=== PATIENT | male | born 1955 | race Caucasian/White ===

== ENCOUNTER 2016-09-04 06:09 | Day surgery (SDC) | payer BC ==
[~2016-09-04 06:09] MED LIST: Buffered Lidocaine 1% SYR 3ML* 3 ML/SYR SYRINGE INTRADERM ONE; Famotidine IV* 10 MG/ML 2 ML (20 mg) IV ONE; Morphine INJ* 2 MG/ML 1 ML CARPUJECT IV PRN; PROCHLORPERAZINE INJ 5 MG/ML 2 ML VIAL IV PRN; fentaNYL* 50 MCG/ML 2 ML VIAL (100 MCG VIAL) IV PRN; oxyCODONE/Acetamin 5/325 MG* TAB PO PRN
[2016-09-04] MEDS ORDERED: Famotidine IV* 10 MG/ML 2 ML (20 mg) ONE (06:22)
[2016-09-04] MEDS ORDERED: Buffered Lidocaine 1% SYR 3ML* 3 ML/SYR SYRINGE ONE (06:23)
[2016-09-04] MEDS ORDERED: ceFAZolin 2 GM PREMIX (*) 2 GM/50 ML BAG IVPB ONE (06:23)
[2016-09-04] MEDS ORDERED: Lidocaine 1% INJ* 10 MG/ML 30 ML SDV ONE (07:10)
[2016-09-04] MEDS ORDERED: Bupivacaine 0.5% W/EPI SDV* 30 ML VIAL ONE (07:10)
[2016-09-04] MEDS ORDERED: KETAMINE HCL* 50 MG/ML 10 ML VIAL ONE (07:23)
[2016-09-04] MEDS ORDERED: Midazolam* 1 MG/ML 5 ML VIAL (5 MG) ONE (07:23)
[2016-09-04] MEDS ORDERED: fentaNYL* 50 MCG/ML 2 ML VIAL (100 MCG VIAL) ONE (07:23)
[2016-09-04] MEDS ORDERED: Ketorolac INJ* 30 MG/ML 1 ML VIAL ONE (08:03)
[2016-09-04] MEDS ORDERED: Ondansetron INJ* 2 MG/ML VIAL ONE (08:03)
[2016-09-04] MEDS ORDERED: Lidocaine 2% PF* 10 ML AMP ONE (08:03)
[2016-09-04] MEDS ORDERED: Propofol* 10 MG/ML 20 ML BTL IV PUSH ONE ×2 (08:03→09:04)
[2016-09-04] MEDS ORDERED: Dexamethasone IV* 4 MG/ML 1 ML (4 MG) ONE (08:03)
--- NOTE | 2016-09-04 09:28 | PN ---
Progress Note - Progress Note Note: Brief Operative Note: Preop Dx: Right Inguinal Hernia Postop Dx: same, indirect Procedure: open repair RIH w mesh Anesthesia: local MAC Surgeon: Jayjay Asst: PROSPER Avendaño EBL: <50 ml Fluids: 700 ml RL drains: none findings: dictated
[2016-09-04 10:21] VITALS: BP 132/87
--- NOTE | 2016-09-04 23:39 | OP ---
DATE OF OPERATION: 09/04/16 [facility] DATE OF : 59 SURGEON: Kostas Ro MD COILER: PROSPER Chan ANESTHESIOLOGIST: Dr. Cohen ANESTHESIA: Local with monitored anesthesia care. PRE-OP DIAGNOSIS: Right inguinal hernia. POST-OP DIAGNOSIS: Right indirect inguinal hernia. OPERATIVE PROCEDURE: Open repair with mesh of a right indirect inguinal hernia. ESTIMATED BLOOD LOSS: Minimal. IV FLUIDS: 800 cc of crystalloid. SPECIMENS: None. WOUND CLASSIFICATION: I. DRAINS: None. COMPLICATIONS: None. DESCRIPTION OF PROCEDURE: Written informed consent was obtained, the right groin was marked with indelible ink, and preoperative antibiotics were administered. The patient was taken to the operating room, placed in the supine position. Sequential compression devices and warming blanket were applied. Anesthesia was administered in the right lower groin and abdomen was prepped and draped in the usual sterile fashion. Time-out verification was completed. Marcaine 0.25% mixed with 1% lidocaine was infiltrated extensively in the right lower quadrant and an oblique incision was made several fingerbreadths above the inguinal crease, carried down through the subcutaneous fat, Maru's fascia , and external oblique aponeurosis was identified and opened in the direction of its fibers. The underlying spermatic cord was identified. There was quite a large amount of scar tissue adherent to the underside of the fascia, and this was taken down with both sharp and blunt dissection. The spermatic cord was then encircled with a 1/4-inch Gus drain at the pubic tubercle. There was a fair amount of adhesive tissue between the cord structures and the direct space and this was dissected sharply to reveal the direct space. Here, there was a small defect in the transversalis fascia with some preperitoneal fat protruding through, which was reduced easily. There was a small bleeding area in the transversalis area, which was controlled with interrupted 3-0 Polysorb LigaSure. Once we had freed the cord up into the internal ring, which was somewhat patulous, appeared to be quite a large amount of scar tissue as well as fat within the spermatic cord. The vas deferens was identified and protected from injury throughout the course of the procedure. It was apparent that there was a rather large indirect inguinal hernia sac extending down towards the scrotum, which was quite thin-walled and at the same time quite scarred to the surrounding tissue, was making the dissection somewhat tedious. I did enter the sac at several places and these rents were closed with running 3-0 Polysorb suture. Eventually, we were able to dissect the sac up into the internal ring. Also, there was noted to be a cord lipoma, which was from the structures up in the internal ring and this was divided, but not sent for specimen. Once we had identified the anatomy, I did plicate the internal ring with several interrupted 3-0 Polysorb sutures in preparation for the mesh placement. Next, the Covidien ProGrip mesh was then placed to cover the direct and indirect spaces and sutured to the pubic tubercle medially, the conjoint tendon superiorly, and the musculature laterally. It was secured to the inguinal ligament inferiorly with a running 0 Polysorb suture. The internal ring was reconstructed nicely in what was felt to be the appropriate diameter. Hemostasis was assured and additional Marcaine was infiltrated. The external oblique aponeurosis was closed with a running 3-0 Polysorb suture. Maru's fascia was closed with interrupted 3-0 Polysorb suture. The skin was approximated with subcuticular 4-0 Polysorb suture. Steri-Strips and sterile dressings were applied. The patient tolerated the procedure well and was taken to the recovery room in stable condition. [id number]/[facility] #: [id number] [facility]
== END 2016-09-04 14:15 | disposition home or self-care (01) ==
LOC: OR 06:09
PROVIDERS: ATTEND Surgery
DX: K40.90 Unilateral inguinal hernia, without obstruction or gangrene, not specified as recurrent (principal); F17.200 Nicotine dependence, unspecified, uncomplicated; K21.9 Gastro-esophageal reflux disease without esophagitis
CPT/HCPCS: C1781; J0690; J1100; J1885; J2001; J2250; J2405; J2704; J3010

== ENCOUNTER 2023-09-06 15:16 | Inpatient (IN) ==
[2023-09-06] MEDS: Iohexol 300 (CONTRAST) 10 ML SDV IV ONE (17:01)
[2023-09-06] MEDS: Lactated Ringers 1000 ml BAG 1,000 ML IV ONE (17:22)
[2023-09-06] MEDS ORDERED: Morphine 2 MG/ML SYRINGE IV PRN (18:30)
[2023-09-06] MEDS ORDERED: Ondansetron 4 mg VIAL 2 MG/ML 2 ml VIAL IV PRN (18:30)
[2023-09-06] MEDS: Piperacillin/Tazobac 3.375 BAG 3.375 GM/100 ML BAG IV ONE (18:47)
[2023-09-06 18:49] LABS: Urine Appearance Cloudy; Urine Bilirubin Negative (Negative); Urine Blood Negative (Negative); Urine Color Yellow; Urine Glucose Negative (Negative); Urine Ketones Negative (Negative); Urine Nitrite Negative (Negative); Urine Protein Negative (Negative); Urine Specific Gravity 1.035 (1.002-1.030); Urine Urobilinogen Negative (Negative)
[2023-09-06 18:56] LABS: INR 1.23 (0.83-1.13)
[2023-09-06] MEDS ORDERED: Zosyn per Pharmacy NOTE FOLLOW UP SCH (19:00)
[2023-09-06] MEDS: NS 0.9% 1000 ml BAG 1,000 ML IV SCH (19:52)
[2023-09-07] MEDS: ZOSYN 3.375 GM Q8H per EXTENDED INFUSION IV SCH ×2 (00:36→03:58)
[2023-09-07 06:06] LABS: Hematocrit 30.7 % (38-53); Hemoglobin 9.9 g/dL (13.2-16.3); Mean Corpuscular Hemoglobin 31.1 pg (27-33); Mean Corpuscular Hgb Conc 32.3 g/dL (31-36); Mean Corpuscular Volume 96.3 fL (80-97); Mean Platelet Volume 9.5 fL (7.5-11.2); Platelet Count 197 10^3/uL (150-450); Red Blood Count 3.19 10^6/uL (4.06-5.63); Red Cell Distribution Width 18.5 % (12-17); White Blood Count 25.4 10^3/uL (3.6-10.2)
[2023-09-07 06:22] LABS: Creatinine, Serum 0.64 mg/dL (0.67-1.17); Potassium 3.7 mmol/L (3.5-5.0); eGFR CKD-EPI 104.4 (>60)
[2023-09-07 06:51] LABS: ABS Basophils 0.1 10^3/uL (0.0-0.1); ABS Lymphocytes 1.7 10^3/uL (1.0-4.8); ABS Monocytes 1.9 10^3/uL (0.0-1.1); ABS Neutrophils 21.6 10^3/uL (1.5-7.6); ABS Nucleated RBC 0.01 10^3/ul; Lymphocyte % 6.8 %
[2023-09-07] MEDS: Pantoprazole VIAL 40 MG VIAL IV SCH (08:40)
[2023-09-07] MEDS: fentaNYL 100 mcg/2 ml 50 MCG/ML VIAL ONE (19:27)
[2023-09-09 07:16] LABS: ABS Monocytes 1.3 10^3/uL (0.0-1.1); ABS Neutrophils 16.5 10^3/uL (1.5-7.6); ABS Nucleated RBC 0.04 10^3/ul; Hematocrit 31.9 % (38-53); Hemoglobin 10.4 g/dL (13.2-16.3); Lymphocyte % 10.2 %; Mean Corpuscular Hemoglobin 31.3 pg (27-33); Mean Corpuscular Hgb Conc 32.6 g/dL (31-36); Mean Platelet Volume 9.5 fL (7.5-11.2); Nucleated Red Blood Cells % 0.2 %/100WBC (0.0-0.8); Platelet Count 216 10^3/uL (150-450); Red Blood Count 3.32 10^6/uL (4.06-5.63); Red Cell Distribution Width 18.3 % (12-17); White Blood Count 19.8 10^3/uL (3.6-10.2)
[2023-09-09 07:34] LABS: C Reactive Protein 161.22 mg/L (<8.01); Calcium 8.2 mg/dL (8.6-10.3); Creatinine, Serum 0.7 mg/dL (0.67-1.17); Potassium 3.4 mmol/L (3.5-5.0); eGFR CKD-EPI 101.6 (>60)
[2023-09-09] MEDS: Potassium Chlor 20 meq TAB.ER PO ONE (12:21)
[2023-09-09] MEDS: Heparin 5000 UNITS/ML 1 mL VIAL SUBCUT SCH (21:57)
[2023-09-10 06:56] LABS: ABS Lymphocytes 1.5 10^3/uL (1.0-4.8); ABS Monocytes 1.1 10^3/uL (0.0-1.1); ABS Neutrophils 12.9 10^3/uL (1.5-7.6); Hematocrit 28.2 % (38-53); Hemoglobin 9.5 g/dL (13.2-16.3); Lymphocyte % 9.4 %; Mean Corpuscular Hemoglobin 31.8 pg (27-33); Mean Corpuscular Hgb Conc 33.5 g/dL (31-36); Mean Corpuscular Volume 94.9 fL (80-97); Mean Platelet Volume 9.4 fL (7.5-11.2); Platelet Count 207 10^3/uL (150-450); Red Blood Count 2.97 10^6/uL (4.06-5.63); White Blood Count 15.4 10^3/uL (3.6-10.2)
[2023-09-10 07:16] LABS: Creatinine, Serum 0.56 mg/dL (0.67-1.17); Potassium 3.7 mmol/L (3.5-5.0); eGFR CKD-EPI 108.7 (>60)
[2023-09-10] MEDS: cefTRIAXone 1 gm/50 mL D5W 1 GM/50 ML BAG IV ONE (13:42)
[2023-09-10 13:44] VITALS: BP 107/67
[2023-09-10] MEDS ORDERED: cefTRIAXone 1 gm/50 mL D5W 1 GM/50 ML BAG IV ONE (17:00)
[2023-09-10] MEDS ORDERED: Amoxicillin/Clavul 875/125 TAB (Augmentin 875 tab) PO SCH (21:00)
== END 2023-09-10 14:30 | disposition home or self-care (01) | DRG 371 ==
LOC: ED 15:16 → EDHOLD 18:22 → SUATTDRO 18:22 → MED 21:40
PROVIDERS: ADMIT Hospitalist; ATTEND Internal Medicine

== ENCOUNTER 2023-09-18 09:24 | Inpatient (IN) ==
[2023-09-18] MEDS: Morphine 4 MG/ML VIAL (1 ml) IV ONE (10:26)
[2023-09-18] MEDS: Ondansetron 4 mg VIAL 2 MG/ML 2 ml VIAL IV ONE (10:26)
[2023-09-18 10:28] LABS: ABS Basophils 0.1 10^3/uL (0.0-0.1); ABS Lymphocytes 1.7 10^3/uL (1.0-4.8); ABS Monocytes 1.4 10^3/uL (0.0-1.1); ABS Neutrophils 12.6 10^3/uL (1.5-7.6); ABS Nucleated RBC 0.01 10^3/ul; Eosinophil % 0.1 %; Hematocrit 31.4 % (38-53); Hemoglobin 10.2 g/dL (13.2-16.3); Lymphocyte % 10.5 %; Mean Corpuscular Hemoglobin 31.4 pg (27-33); Mean Corpuscular Hgb Conc 32.4 g/dL (31-36); Mean Corpuscular Volume 96.8 fL (80-97); Mean Platelet Volume 9.7 fL (7.5-11.2); Nucleated Red Blood Cells % 0.1 %/100WBC (0.0-0.8); Platelet Count 280 10^3/uL (150-450); Red Blood Count 3.24 10^6/uL (4.06-5.63); Red Cell Distribution Width 17.3 % (12-17); White Blood Count 15.8 10^3/uL (3.6-10.2)
[2023-09-18] MEDS: Lactated Ringers 1000 ml BAG 1,000 ML IV ONE ×2 (10:28→14:49)
[2023-09-18] MEDS: Piperacillin/Tazobac 3.375 BAG 3.375 GM/100 ML BAG IV ONE (10:28)
[2023-09-18 10:45] LABS: Albumin 2.4 g/dL (3.2-5.2); Albumin/Globulin Ratio 0.7 (1-3); C Reactive Protein 232.22 mg/L (<8.01); Calcium 8.4 mg/dL (8.6-10.3); Creatinine, Serum 0.53 mg/dL (0.67-1.17); Globulin 3.6 g/dL (2-4); Magnesium 1.6 mg/dL (1.9-2.7); Potassium 3.6 mmol/L (3.5-5.0); Total Bilirubin 0.6 mg/dL (0.2-1.0); eGFR CKD-EPI 110.5 (>60)
[2023-09-18] MEDS: metroNIDAZOLE IV 500 MG/100ML 500 MG/100 ML BAG IVPB ONE (10:57)
[2023-09-18 11:01] LABS: Activated Partial Thrombo Time 37.4 seconds (26.0-38.0); INR 1.93 (0.83-1.13)
[2023-09-18] MEDS: Iohexol 350 (CONTRAST) 500 ML MDV IV ONE (11:05)
[2023-09-18 12:22] LABS: High Sensitivity Troponin 1 Hr 14 pg/mL (<20)
[2023-09-18] MEDS ORDERED: Zosyn per Pharmacy NOTE FOLLOW UP SCH (14:00)
[2023-09-18] MEDS: Enoxaparin 40 MG/0.4 ML SYR SUBCUT SCH (14:49)
[2023-09-18] MEDS: Magnesium Sulfate 2 gm BAG 2 GM/50 ML BAG IVPB ONE ×2 (14:49→16:19)
[2023-09-18] MEDS: ZOSYN 3.375 GM Q8H per EXTENDED INFUSION IV SCH ×3 (16:11→18:09)
[2023-09-18 18:49] LABS: % Iron Saturation 28 % (15-55); .Transferrin < 75 mg/dL (203-362); Iron 29 ug/dL (50-212); Total Iron Binding Capacity 105 mcg/dL (250-450); Unsaturated Iron Binding 76 ug/dL
[2023-09-18 19:22] LABS: Vitamin B12 > 1450 pg/mL (180-914)
[2023-09-18 20:49] LABS: Ferritin 2913.5 ng/mL (24-336)
[2023-09-19] MEDS: Lactated Ringers 1000 ml BAG 1,000 ML IV ONE (02:03)
[2023-09-19 06:51] LABS: ABS Eosinophils 0.1 10^3/uL (0.0-0.5); ABS Lymphocytes 1.5 10^3/uL (1.0-4.8); ABS Monocytes 1.1 10^3/uL (0.0-1.1); ABS Neutrophils 6.3 10^3/uL (1.5-7.6); ABS Nucleated RBC 0.01 10^3/ul; Eosinophil % 0.6 %; Hemoglobin 9.3 g/dL (13.2-16.3); Lymphocyte % 17.1 %; Mean Corpuscular Hgb Conc 33.3 g/dL (31-36); Mean Platelet Volume 9.5 fL (7.5-11.2); Nucleated Red Blood Cells % 0.1 %/100WBC (0.0-0.8); Platelet Count 231 10^3/uL (150-450); Red Blood Count 2.92 10^6/uL (4.06-5.63); Red Cell Distribution Width 17.4 % (12-17); White Blood Count 9.1 10^3/uL (3.6-10.2)
[2023-09-19 07:04] LABS: Calcium 7.7 mg/dL (8.6-10.3); Creatinine, Serum 0.53 mg/dL (0.67-1.17); Magnesium 1.8 mg/dL (1.9-2.7); Potassium 3.4 mmol/L (3.5-5.0); eGFR CKD-EPI 110.5 (>60)
[2023-09-19] MEDS: Magnesium Sulfate IV 1GM/100ML 1 GM/100 ML BAG IV ONE (09:06)
[2023-09-19] MEDS: Potassium Chlor 20 meq TAB.ER PO SCH (09:07)
[2023-09-19] MEDS: KCL 20 MEQ/100 ML IVPREMIX 20 MEQ/100 ML BAG IV SCH (09:09)
[2023-09-20 07:17] LABS: ABS Eosinophils 0.1 10^3/uL (0.0-0.5); ABS Lymphocytes 1.6 10^3/uL (1.0-4.8); ABS Monocytes 1.1 10^3/uL (0.0-1.1); ABS Neutrophils 8.4 10^3/uL (1.5-7.6); ABS Nucleated RBC 0.01 10^3/ul; Eosinophil % 0.5 %; Hematocrit 29.3 % (38-53); Hemoglobin 9.5 g/dL (13.2-16.3); Lymphocyte % 14.6 %; Mean Corpuscular Hemoglobin 31.2 pg (27-33); Mean Corpuscular Hgb Conc 32.5 g/dL (31-36); Mean Corpuscular Volume 96.2 fL (80-97); Mean Platelet Volume 9.5 fL (7.5-11.2); Nucleated Red Blood Cells % 0.1 %/100WBC (0.0-0.8); Platelet Count 262 10^3/uL (150-450); Red Blood Count 3.05 10^6/uL (4.06-5.63); Red Cell Distribution Width 17.5 % (12-17); White Blood Count 11.3 10^3/uL (3.6-10.2)
[2023-09-20 07:33] LABS: Calcium 7.8 mg/dL (8.6-10.3); Creatinine, Serum 0.52 mg/dL (0.67-1.17); Magnesium 1.6 mg/dL (1.9-2.7); Potassium 3.9 mmol/L (3.5-5.0); eGFR CKD-EPI 111.2 (>60)
[2023-09-20] MEDS: Magnesium Sulfate 2 gm BAG 2 GM/50 ML BAG IVPB ONE (10:15)
[2023-09-21] MEDS: fentaNYL 100 mcg/2 ml 50 MCG/ML VIAL ONE (10:56)
[2023-09-22 06:43] LABS: Hematocrit 31.6 % (38-53); Hemoglobin 10.4 g/dL (13.2-16.3); Mean Corpuscular Hemoglobin 31.7 pg (27-33); Mean Corpuscular Hgb Conc 32.8 g/dL (31-36); Mean Corpuscular Volume 96.7 fL (80-97); Platelet Count 292 10^3/uL (150-450); Red Blood Count 3.27 10^6/uL (4.06-5.63); Red Cell Distribution Width 17.7 % (12-17); White Blood Count 11.9 10^3/uL (3.6-10.2)
[2023-09-22 07:05] LABS: Calcium 8.2 mg/dL (8.6-10.3); Creatinine, Serum 0.53 mg/dL (0.67-1.17); Magnesium 1.8 mg/dL (1.9-2.7); Phosphorus 2.4 mg/dL (2.5-5.0); Potassium 4.5 mmol/L (3.5-5.0); eGFR CKD-EPI 110.5 (>60)
[2023-09-23 05:51] LABS: Hematocrit 30.2 % (38-53); Mean Corpuscular Hemoglobin 31.9 pg (27-33); Mean Corpuscular Volume 96.8 fL (80-97); Platelet Count 258 10^3/uL (150-450); Red Blood Count 3.12 10^6/uL (4.06-5.63); White Blood Count 10.4 10^3/uL (3.6-10.2)
[2023-09-23 06:09] LABS: Creatinine, Serum 0.54 mg/dL (0.67-1.17); Magnesium 1.7 mg/dL (1.9-2.7); Phosphorus 2.5 mg/dL (2.5-5.0); Potassium 4.3 mmol/L (3.5-5.0); eGFR CKD-EPI 109.9 (>60)
[2023-09-23] MEDS: Magnesium Sulfate 2 gm BAG 2 GM/50 ML BAG IV ONE (10:45)
[2023-09-24] MEDS ORDERED: Saline NASAL SPRAY 0.65% BTL BOTH NARES PRN (03:01)
[2023-09-24] MEDS: Morphine ORAL CONCENTRATE 5 MG/0.25 ML ORAL.SYRIN SL PRN (18:21)
[2023-09-25 06:16] VITALS: BP 111/72
== END 2023-09-25 10:23 | disposition hospice, home (50) | DRG 871 ==
LOC: ED 09:24 → SUATTDRO 12:14 → MEDTELE 12:14
PROVIDERS: ADMIT Hospitalist; ATTEND Internal Medicine